=== PATIENT | male | born 1975 | race Caucasian/White ===

== ENCOUNTER 2023-01-15 08:31 | Outpatient (AMB) | payer OTHER, SELFPAY ==
--- NOTE | 2023-01-15 08:45 | A.OFFVIS_ITS ---
Intake Vital Signs 01/15/23 08:47 Height 5 ft 9 in Weight 190 lb 11.198 oz BMI 28.2 BP 104/68 Blood Pressure Location Rt brachial Position Sitting Pulse 55 Pulse Source Pulse Oximeter Temp 97.4 F Temp Source Skin Pulse Oximetry (%) 97 Intake Visit Reasons: +SANDRO Intake Note: New pt presents today abnormal lab consult. Reports he has MS, referred by neuro. Receiving ocrevus infusion [id number]. C/o pain in legs, low back and elbows. 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 Accompanied by: Self / Same As Patient Allergies acetaminophen [From Percocet] Adverse Reaction (Unknown, Verified 01/15/23 08:50) Itching amoxicillin Adverse Reaction (Unknown, Verified 01/15/23 08:50) Unknown oxycodone [From Percocet] Adverse Reaction (Unknown, Verified 01/15/23 08:50) Itching Medication List - Last Reconciled 01/15/23 by Yash Armenta MD baclofen 10 - 20 mg PO DAILY dalfampridine ER (Ampyra) 10 mg PO Q12H gabapentin 900 mg PO TID ocrelizumab (Ocrevus) 600 mg IV [id number] HPI HPI Comments History of Present Illness Details This is a 47-year-old male with a past medical history of MS was referred for evaluation of a positive SANDRO. Patient states that he was diagnosed with MS at age 29. He is currently on Ocrevus infusions. Patient is unaware of any family history of an autoimmune rheumatic disease. He states that his father's aunt had MS. 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 Patient denies any other symptoms. He denies any fevers, weight loss, skin rashes, Raynaud's, swollen joints, mouth ulcers, blood in the urine. He denies any cough or shortness of breath with activity. Denies sicca symptoms. States that his limiting factor would be leg muscle fatigue. Denies any history of DVT/PE. [facility] Medical History (Updated 01/15/23 @ 09:29 by Yash Armenta MD) SANDRO positive Multiple sclerosis Surgical History History of tonsillectomy and adenoidectomy Family History Father Cancer Mother Lung cancer Social History Alcohol intake: current Alcohol intake frequency: does not drink Patient Tobacco Use Status: Tobacco use Unknown Use of substances other than those prescribed or required for medical reasons: Yes Substance Use Type: Marijuana Substance Use Frequency: Daily Current occupational status: employed Current occupation: [employer] Review of Systems Const Denies fatigue, Denies fever(s) and Denies weight loss Eyes Denies dry eyes ENT Denies dysphagia Card Denies dyspnea on exertion Resp Denies cough and Denies dyspnea on exertion GI Denies dysphagia and Denies heartburn Denies hematuria Musc Reports arthralgias Skin/Breast Denies rash Endo Denies fatigue Physical Exam Vital Signs: Last Vital Signs Temp 97.4 F 01/15/23 08:47 Pulse 55 01/15/23 08:47 BP 104/68 01/15/23 08:47 Pulse Ox 97 01/15/23 08:47 BMI result Body Mass Index 28.2 Const General: cooperative, healthy appearing and comfortable Nutritional Appearance: overweight Orientation/consciousness: patient oriented x3 Limitations: no limitations HEENT Head: Yes normocephalic and Yes atraumatic Mouth: moist mucous membranes Resp Effort & Inspection: normal respiratory effort and able to speak in complete sentences Auscultation: clear to auscultation bilaterally Cardio Rate: regular rate Rhythm: regular rhythm Heart sounds: S1 normal heart sound present GI Inspection: No distended Palpation (GI): Soft to palpation and nontender Skin Other: Dry skin of both hands Neuro General: patient oriented x3 Extrem Other: No active synovitis Normal nailfold capillaroscopy Results Reviewed Results Reviewed: SANDRO 1-320 nucleolar DsDNA/SSA/SSB negative Assessment & Plan Assessment & Plan (1) SANDRO positive: Code(s): R76.8 - Other specified abnormal immunological findings in serum Plan: This is a 47-year-old male with a past medical history of MS who was referred by Neurology for evaluation of a positive SANDRO. I do not see any evidence of an autoimmune rheumatic disease upon my evaluation. Patient essentially has negative review of systems and unremarkable physical exam. I discussed with patient symptoms and signs that are suggestive of an autoimmune rheumatic disease. Follow-up as needed Plan I spent 32 minutes reviewing patient's chart, evaluating patient, counseling patient and documenting in the chart Coding Level of Care Code New Pt Level 3 (21888) Diagnoses SANDRO positive R76.8
[2023-01-15 08:47] VITALS: BP 104/68; PULSE 55; TEMP 36.3; O2SAT 97; BMI 28.2
== END 2023-01-15 09:26 | disposition home or self-care (01) ==
PROVIDERS: PCP Student in an Organized Health Care Education/Training Program; Visit Provider Student in an Organized Health Care Education/Training Program
DX: R76.8 Other specified abnormal immunological findings in serum (principal)
CPT/HCPCS: 99203

== ENCOUNTER → 2023-01-15 08:31 | Outpatient (BNVA) | payer OTHER, SELFPAY | PROVIDERS: PCP Student in an Organized Health Care Education/Training Program; Visit Provider Student in an Organized Health Care Education/Training Program ==